=== PATIENT | male | born 1945 | race Hispanic/Latino ===

== ENCOUNTER 2017-01-12 06:53 | Emergency (ER) | payer MEDICARE, OTHER, MEDICAID ==
[2017-01-12 06:53] VITALS: BMI 26.6
[2017-01-12 07:01] VITALS: O2SAT 99
--- NOTE | 2017-01-12 07:21 | C.PDOC ---
History Of Present Illness 71 y/o male pmhx Alzheimers, seizure disorder and frequent falls on aspirin and plavix presents to the ED s/p fall. Pt states last night he was walking to the bathroom when he slipped and his legs gave out falling forward onto knees and hitting face, denies LOC. Pt now with abrasions to his face and knees. Denies chest pain, SOB, hip pain, leg pain, nausea, vomiting or any other complaints. - HPI Time Seen by Provider: 01/12/17 07:07 Chief Complaint (Nursing): Trauma History Per: Patient History/Exam Limitations: no limitations Onset/Duration Of Symptoms: Hrs Location Of Injury: Right: Knee, Left: Knee, Anterior: Face Severity: Mild Recent travel outside of the [place]: No - Fall Fall:Prior To Injury: Slipped Past Medical History Reviewed: Historical Data, Nursing Documentation, Vital Signs Vital Signs: Last Vital Signs Temp 97.5 F L 01/12/17 10:01 Pulse 67 01/12/17 10:01 Resp 17 01/12/17 10:01 BP 163/67 H 01/12/17 10:01 Pulse Ox 99 01/12/17 13:41 - Medical History PMH: Anxiety, Atrial Fibrillation, Dementia, HTN, Osteoporosis, Pneumonia, Seizures Comment Only: CHF (A-Fib) - [facility] Procedures FLUOROSCOPY OF RIGHT HEART USING OTHER CONTRAST (04/24/15) MEASURE OF CARDIAC SAMPL & PRESSURE, R HEART, PERC APPROACH (04/24/15) Family History: States: Unknown Family Hx - Social History Hx Tobacco Use: No Hx Alcohol Use: No Hx Substance Use: No - Immunization History Hx Tetanus Toxoid Vaccination: No Hx Influenza Vaccination: Yes Hx Pneumococcal Vaccination: Yes Review Of Systems Except As Marked, All Systems Reviewed And Found Negative. Constitutional: Negative for: Fever, Chills Cardiovascular: Negative for: Chest Pain, Palpitations, Orthopnea, Edema, Light Headedness Respiratory: Negative for: Cough, Shortness of Breath, SOB with Excertion, Wheezing Gastrointestinal: Negative for: Nausea, Vomiting, Constipation Genitourinary: Negative for: Dysuria Musculoskeletal: Negative for: Neck Pain, Back Pain Skin: Positive for: Other (abrasions to face and bilateral knees) Neurological: Negative for: Weakness, Numbness, Headache Physical Exam - Physical Exam Appears: Well, Non-toxic, No Acute Distress Skin: Warm, Other (3 cm linear abrasion to forehead with pinpoint abrasion to top of nose; abrasions to bilateral knees) Head: Normacephalic, No Swelling Eye(s): bilateral: Normal Inspection, PERRL, EOMI Ear(s): Bilateral: Normal Nose: No Epistaxis Neck: Normal, Normal ROM, No Midline Cervical Tenderness, No Paracervical Tenderness, Supple Chest: Symmetrical, No Tenderness (no bony rib tenderness) Cardiovascular: Rhythm Regular, No Murmur Respiratory: Normal Breath Sounds, No Rales, No Rhonchi, No Wheezing Gastrointestinal/Abdominal: Normal Exam, Soft, No Tenderness, No Mass, No Distention Back: Normal Inspection, No Vertebral Tenderness Extremity: Normal ROM (upper and lower extremities), No Tenderness (no hip tenderness), No Deformity, No Swelling Neurological/Psych: Oriented x3, Normal Speech, Normal Cognition, Normal Motor, Normal Sensation Gait: With Assistance ED Course And Treatment - Laboratory Results Result Diagrams: 01/12/17 11:10 01/12/17 11:10 O2 Sat by Pulse Oximetry: 99 (room air) Pulse Ox Interpretation: Normal - CT Scan/US CT cervical spine Other Rad Studies (CT/US): Read By Radiologist, Radiology Report Reviewed CT/US Interpretation: CT cervical spine. History: Injury. Comparison: None available. Technique: Multiple contiguous axial images were performed through the cervical spine without the use of intravenous contrast. Findings: The patient is rotated in the scanner, somewhat limiting evaluation. Reversal of the normal cervical lordosis. Prominent narrowing at the atlantodental interval with sclerosis and bony hypertrophy. Anterior osteophytosis at the C3- 4, C4-5, C5-6, and C6-7 levels. Multilevel posterior disc osteophyte complexes at the C4-5, C5-6, and C6-7 levels. Vertically-oriented bony hypertrophy and or osteophytosis emanating from the posterior C7 vertebral body extending into the anterior thecal sac. This may be better evaluated with MRI. Please see separate report for evaluation of the facial soft tissues including possible nasal deformities. Multilevel uncovertebral joint and facet hypertrophy. 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 Heterogeneous thyroid gland. Impression: Degenerative changes. If pain persists, consider MRI. The patient is rotated in the scanner, somewhat limiting evaluation. 1. Prominent narrowing at the atlantodental interval with sclerosis and bony hypertrophy. 2. Anterior osteophytosis at the C3-4, C4-5, C5-6, and C6-7 levels. 3. Multilevel posterior disc osteophyte complexes at the C4-5, C5-6, and C6-7 levels. 4. Vertically-oriented bony hypertrophy and or osteophytosis emanating from the posterior C7 vertebral body extending into the anterior thecal sac. This may be better evaluated with MRI. 5. Please see separate report for evaluation of the facial soft tissues including possible nasal deformities. 6. Multilevel uncovertebral joint and facet hypertrophy. 7. 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 CT face Other Rad Studies (CT/US): Read By Radiologist, Radiology Report Reviewed CT/US Interpretation: CT face. History: Trauma. Comparison: None available. Technique: Multi-echo multiplanar sequences were performed through the maxillofacial soft tissues without the use of intravenous contrast. Subsequently, sagittal and coronal reformatted images were obtained. This CT exam was performed using one or more of the following dose reduction techniques : Automated exposure control, adjustment of the mA and/or kV according to patient size, and/or use of iterative reconstruction technique. Findings: Prominent soft tissue swelling seen within the left frontal region extending inferiorly into the periorbital regions and overlying the nasal bones. Subcutaneous air noted within the soft tissues overlying the nasal bones. Suggestion of deformities of the bilateral nasal bones suggestive for nondisplaced fractures. Paranasal sinuses are otherwise preserved. Orbital globes appear preserved. Metallic artifact from likely prior dental or surgical debris at the level of the anterior left mandible. Clinical correlation to prior surgical and or dental changes. Dental caries noted. Degenerative changes in the spine noted. At the level of the left TMJ joint space there is a punctate osteophyte and or ossific density seen at the left TMJ joint space. Clinical correlation. Impression: 1. Prominent soft tissue swelling seen within the left frontal region extending inferiorly into the periorbital regions and overlying the nasal bones. Subcutaneous air noted within the soft tissues overlying the nasal bones. 2. Suggestion of deformities of the bilateral nasal bones suggestive for nondisplaced fractures. 3. Metallic artifact from likely prior dental or surgical debris at the level of the anterior left mandible. Clinical correlation to prior surgical and or dental changes. 4. Dental caries noted. 5. Degenerative changes in the spine noted. 6. At the level of the left TMJ joint space there is a punctate osteophyte and or ossific density seen at the left TMJ joint space. Clinical correlation. CT head Other Rad Studies (CT/US): Read By Radiologist, Radiology Report Reviewed CT/US Interpretation: PROCEDURE: CT HEAD WITHOUT CONTRAST. HISTORY: head injury. COMPARISON: 04/23/2015. TECHNIQUE: Axial computed tomography images were obtained through the head/brain without intravenous contrast. Radiation dose: Total exam DLP = 969 mGy-cm. This CT exam was performed using one or more of the following dose reduction techniques: Automated exposure control, adjustment of the mA and/or kV according to patient size, and/or use of iterative reconstruction technique. FINDINGS: HEMORRHAGE: No intracranial hemorrhage. BRAIN: Moderate cerebral and cerebellar atrophy. Scattered focal lucencies in the subcortical and periventricular white matter suggestive for chronic microvascular ischemic change. Left basal ganglia lacunar infarct. Small focal areas of chronic encephalomalacia seen within the posterior right frontal lobe. VENTRICLES: Unremarkable. No hydrocephalus. CALVARIUM: Unremarkable. PARANASAL SINUSES: Scattered mucosal thickening of the ethmoid sinuses. MASTOID AIR CELLS: Unremarkable as visualized. No inflammatory changes. OTHER FINDINGS: Atherosclerotic disease of the intracranial arteries. Mild left frontal and periorbital soft tissue swelling. IMPRESSION: Chronic microvascular ischemic change. Moderate cerebral and cerebellar atrophy. Left basal ganglia lacunar infarct. If focal neurologic deficit persists, consider MRI. Laceration - Laceration Repair No standard instances Wound Length (In cm): 4 Description Of Wound: Linear (abrasion) Wound Examination: Irrigated With Saline Wound Closure: Skin Glue no Wound Length (In cm): 1 Description Of Wound: Stellate Anesthesia: Lidocaine 1% Wound Examination: Irrigated With Saline Wound Closure: Suture (1) Wound Complexity: Simple Medical Decision Making Medical Decision Making: Plan: -CT head, CT c-spine, CT max/facial -Tetanus -Lac repair 9:58PM CT max face shows non-displaced nasal bone fractures. CT head and CT c-spine shows no acute changes but chronic infarcts and djd. Abrasions repaired with dermabond and 1 suture. Dressing applied. 10:42AM I went to discharge patient and he now reports he had seizure this morning. Will get bloodwork and anti-epilpetic levels 1:36PM Labs reviwed and grossly normal. Coagulation studies WNL. Nursing paperwork reviewed that showed patient fell and has hx of falls. He has been [facility]. Patient has been monitored in ED for 7 hours and has had no change in mental status. His is neurologically at baseline. UA shows uti. Spoke to PMD Dr. Jesus Monahan about patient at length. He reports that patient attempts to ambulate alone and has hx of falls. He agrees with current management and to discharge with antibiotics for uti. Disposition - Disposition Referrals: Maninder Temple MD [Staff Provider] - Disposition: HOME/ ROUTINE Disposition Time: 10:15 Condition: GOOD Additional Instructions: Follow-up with ENT within 2 days for nasal bone fractures. Return to ED if condition worsens. Monitor patient for any change in mental status. 1 suture to nose needs removal in 10 days Prescriptions: Ciprofloxacin [Cipro] 250 mg PO BID #10 tab Instructions: Nasal Fracture (ED), Urinary Tract Infection in Men (ED), Fall Prevention for Older Adults (ED) - Clinical Impression Clinical Impression: UTI (urinary tract infection), Fall, Nasal bone fracture - Scribe Statement The provider has reviewed the documentation as recorded by the Reynaibnisha Herrera Provider Attestation: All medical record entries made by the Reynaibe were at my direction and personally dictated by me. I have reviewed the chart and agree that the record accurately reflects my personal performance of the history, physical exam, medical decision making, and the department course for this patient. I have also personally directed, reviewed, and agree with the discharge instructions and disposition.
--- NOTE | 2017-01-12 08:43 | CT ---
PROCEDURE: CT HEAD WITHOUT CONTRAST. HISTORY: head injury COMPARISON: 04/23/2015 TECHNIQUE: Axial computed tomography images were obtained through the head/brain without intravenous contrast. Radiation dose: Total exam DLP = 969 mGy-cm. This CT exam was performed using one or more of the following dose reduction techniques: Automated exposure control, adjustment of the mA and/or kV according to patient size, and/or use of iterative reconstruction technique. FINDINGS: HEMORRHAGE: No intracranial hemorrhage. BRAIN: Moderate cerebral and cerebellar atrophy. Scattered focal lucencies in the subcortical and periventricular white matter suggestive for chronic microvascular ischemic change. Left basal ganglia lacunar infarct. Small focal areas of chronic encephalomalacia seen within the posterior right frontal lobe. VENTRICLES: Unremarkable. No hydrocephalus. CALVARIUM: Unremarkable. PARANASAL SINUSES: Scattered mucosal thickening of the ethmoid sinuses. MASTOID AIR CELLS: Unremarkable as visualized. No inflammatory changes. OTHER FINDINGS: Atherosclerotic disease of the intracranial arteries. Mild left frontal and periorbital soft tissue swelling. IMPRESSION: Chronic microvascular ischemic change. Moderate cerebral and cerebellar atrophy. Left basal ganglia lacunar infarct. If focal neurologic deficit persists, consider MRI.
--- NOTE | 2017-01-12 08:53 | CT ---
CT face History: Trauma. Comparison: None available. Technique: Multi-echo multiplanar sequences were performed through the maxillofacial soft tissues without the use of intravenous contrast. Subsequently, sagittal and coronal reformatted images were obtained. This CT exam was performed using one or more of the following dose reduction techniques: Automated exposure control, adjustment of the mA and/or kV according to patient size, and/or use of iterative reconstruction technique. Findings: Prominent soft tissue swelling seen within the left frontal region extending inferiorly into the periorbital regions and overlying the nasal bones. Subcutaneous air noted within the soft tissues overlying the nasal bones. Suggestion of deformities of the bilateral nasal bones suggestive for nondisplaced fractures. Paranasal sinuses are otherwise preserved. Orbital globes appear preserved. Metallic artifact from likely prior dental or surgical debris at the level of the anterior left mandible. Clinical correlation to prior surgical and or dental changes. Dental caries noted. Degenerative changes in the spine noted. At the level of the left TMJ joint space there is a punctate osteophyte and or ossific density seen at the left TMJ joint space. Clinical correlation. Impression: 1. Prominent soft tissue swelling seen within the left frontal region extending inferiorly into the periorbital regions and overlying the nasal bones. Subcutaneous air noted within the soft tissues overlying the nasal bones. 2. Suggestion of deformities of the bilateral nasal bones suggestive for nondisplaced fractures. 3. Metallic artifact from likely prior dental or surgical debris at the level of the anterior left mandible. Clinical correlation to prior surgical and or dental changes. 4. Dental caries noted. 5. Degenerative changes in the spine noted. 6. At the level of the left TMJ joint space there is a punctate osteophyte and or ossific density seen at the left TMJ joint space. Clinical correlation.
--- NOTE | 2017-01-12 09:08 | CT ---
CT cervical spine History: Injury. Comparison: None available. Technique: Multiple contiguous axial images were performed through the cervical spine without the use of intravenous contrast. Findings: The patient is rotated in the scanner, somewhat limiting evaluation. Reversal of the normal cervical lordosis. Prominent narrowing at the atlantodental interval with sclerosis and bony hypertrophy. Anterior osteophytosis at the C3-4, C4-5, C5-6, and C6-7 levels. Multilevel posterior disc osteophyte complexes at the C4-5, C5-6, and C6-7 levels. Vertically-oriented bony hypertrophy and or osteophytosis emanating from the posterior C7 vertebral body extending into the anterior thecal sac. This may be better evaluated with MRI. Please see separate report for evaluation of the facial soft tissues including possible nasal deformities. Multilevel uncovertebral joint and facet hypertrophy. 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 Heterogeneous thyroid gland. Impression: Degenerative changes. If pain persists, consider MRI. The patient is rotated in the scanner, somewhat limiting evaluation. 1. Prominent narrowing at the atlantodental interval with sclerosis and bony hypertrophy. 2. Anterior osteophytosis at the C3-4, C4-5, C5-6, and C6-7 levels. 3. Multilevel posterior disc osteophyte complexes at the C4-5, C5-6, and C6-7 levels. 4. Vertically-oriented bony hypertrophy and or osteophytosis emanating from the posterior C7 vertebral body extending into the anterior thecal sac. This may be better evaluated with MRI. 5. Please see separate report for evaluation of the facial soft tissues including possible nasal deformities. 6. Multilevel uncovertebral joint and facet hypertrophy. 7. 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
[2017-01-12] MEDS ORDERED: Lidocaine 1% Inj (20ml) INFIL ONE (09:59)
[2017-01-12] MEDS ORDERED: Lidocaine 1% Inj (20ml) ONE (10:04)
[2017-01-12 11:27] LABS: BASO # 0.2 K/uL (0.0-0.2); EOS # 0.3 K/uL (0.0-0.7); EOS % 3.7 % (0.0-4.0); HEMOGLOBIN 14.3 g/dL (12.0-18.0); LYMPH # 0.9 K/uL (1.0-4.3); LYMPH % 10.8 % (20.0-40.0); MEAN CORPUSCULAR HEMOGLOBIN 32.6 pg (27.0-31.0); MEAN CORPUSCULAR HGB CONC 33.6 g/dL (33.0-37.0); MEAN PLATELET VOLUME 7.5 fL (7.2-11.7); MONO # 0.8 K/uL (0.0-0.8); MONO % 9.3 % (0.0-10.0); NEUT # 6.1 K/uL (1.8-7.0); NEUT % 74.2 % (50.0-75.0); NRBC % 0.1 % (0.0-2.0); RBC 4.38 Mil/uL (4.40-5.90); RED CELL DISTRIBUTION WIDTH 13.4 % (11.5-14.5); WHITE BLOOD COUNT 8.3 K/uL (4.8-10.8)
--- NOTE | 2017-01-12 11:29 | RAD ---
HISTORY: fall COMPARISON: Chest x-ray performed 04/23/15 TECHNIQUE: Chest, one view. FINDINGS: Examination limited by habitus. LUNGS: Biapical pleural thickening. No focal consolidation. Please note that chest x-ray has limited sensitivity for the detection of pulmonary masses. PLEURA: No significant pleural effusion identified. No definite pneumothorax . CARDIOVASCULAR: Borderline cardiomegaly. Atherosclerotic calcifications of the aorta. OSSEOUS STRUCTURES: No acute osseous abnormality identified. VISUALIZED UPPER ABDOMEN: Unremarkable. OTHER FINDINGS: None. IMPRESSION: Biapical pleural thickening. Borderline cardiomegaly. Atherosclerotic calcifications of the aorta.
[2017-01-12 11:37] LABS: ALBUMIN 3.4 g/dL (3.5-5.0)
[2017-01-12 11:39] LABS: GFR AFRICAN-AMERICAN > 60; GFR NON-AFRICAN AMERICAN > 60
[2017-01-12 11:40] LABS: ALB/GLOB RATIO 1.2 (1.0-2.1); ALT/SGPT 25 U/L (21-72); AST/SGOT 34 U/L (17-59); BLOOD UREA NITROGEN 11 mg/dL (9-20); CALCIUM 8.3 mg/dl (8.6-10.4); MAGNESIUM 2.2 mg/dL (1.6-2.3)
[2017-01-12] MEDS ORDERED: Bacitracin 500 Units/gm Oint Foilpak UD ONE (12:21)
[2017-01-12 12:32] LABS: SQUAMOUS EPITHIAL 1 /hpf (0-5); URINE BACTERIA OCC (<OCC); URINE BILIRUBIN NEGATIVE (NEGATIVE); URINE BLOOD NEGATIVE (NEGATIVE); URINE CLARITY Hazy (Clear); URINE COLOR Yellow (YELLOW); URINE GLUCOSE (UA) NORMAL (Normal); URINE LEUKOCYTE ESTERASE 2+ Leu/uL (Negative); URINE NITRATE NEGATIVE (NEGATIVE); URINE PROTEIN NEGATIVE (NEGATIVE); URINE UROBILINOGEN NORMAL mg/dL (0.2-1.0)
[2017-01-12 13:32] LABS: INR 1.1
[2017-01-12 14:58] VITALS: BP 166/79; PULSE 65; RESP 16; TEMP 97.9
[2017-01-14 12:18] LABS: LAMOTRIGINE 11.2 mcg/mL (4.0-18.0)
[2017-01-15 13:59] LABS: LEVETIRACETAM 16.4 mcg/mL
== END 2017-01-12 15:30 | disposition home or self-care (01) ==
LOC: C.ER 06:53
DX: S02.2XXB Fracture of nasal bones, initial encounter for open fracture (principal); W01.0XXA Fall on same level from slipping, tripping and stumbling without subsequent striking against object, initial encounter; Y92.128 Other place in nursing home as the place of occurrence of the external cause; N39.0 Urinary tract infection, site not specified

== ENCOUNTER 2017-05-11 18:01 | Emergency (ER) | payer MEDICARE, OTHER, MEDICAID ==
[2017-05-11 18:02] VITALS: BMI 26.6
--- NOTE | 2017-05-11 19:22 | C.PDOC ---
History Of Present Illness Patient presents to ED for evaluation status post falling and hitting head prior to arrival. Patient sustained 1.5cm superficial laceration to head and denies loc, seizure, vision changes, nausea, vomiting, other injury or any other complaints at this time. Time Seen by Provider: 05/11/17 19:22 Chief Complaint (Nursing): Abnormal Skin Integrity History Per: Patient History/Exam Limitations: no limitations Onset/Duration Of Symptoms: Hrs Current Symptoms Are (Timing): Still Present Quality Of Symptoms: Painful Severity: Mild Pain Scale Rating Of: 2 Recent travel outside of the [place]: No Past Medical History Reviewed: Historical Data, Nursing Documentation, Vital Signs Vital Signs: Last Vital Signs Temp 98.2 F 05/11/17 18:13 Pulse 78 05/11/17 18:13 Resp 18 05/11/17 18:13 BP 160/80 H 05/11/17 18:13 Pulse Ox 98 05/11/17 19:42 - Medical History PMH: Alzheimer's Disease, Anxiety, Arthritis, Atrial Fibrillation, Dementia, HTN , Osteoporosis, Pneumonia, Seizures Comment Only: CHF (A-Fib) Surgical History: No Surg Hx - [facility] Procedures FLUOROSCOPY OF RIGHT HEART USING OTHER CONTRAST (04/24/15) MEASURE OF CARDIAC SAMPL & PRESSURE, R HEART, PERC APPROACH (04/24/15) REPAIR FACE SKIN, EXTERNAL APPROACH (04/25/17) Family History: States: No Known Family Hx - Social History Hx Tobacco Use: No Hx Alcohol Use: No Hx Substance Use: No - Immunization History Hx Tetanus Toxoid Vaccination: No Hx Influenza Vaccination: Yes Hx Pneumococcal Vaccination: Yes Review Of Systems Eyes: Negative for: Vision Change Gastrointestinal: Negative for: Nausea, Vomiting Skin: Negative for: Rash Neurological: Negative for: Seizures, Dizziness Physical Exam - Physical Exam Appears: Non-toxic, No Acute Distress Skin: Warm, Dry, No Rash Head: Normacephalic, Other (1.5cm superficial escoriation possible laceration on temporal parietal area) Eye(s): bilateral: PERRL, EOMI Oral Mucosa: Moist Neck: Supple Cardiovascular: Rhythm Regular Respiratory: No Rales, No Rhonchi, No Wheezing Gastrointestinal/Abdominal: Soft, No Tenderness, No Guarding, No Rebound Neurological/Psych: Oriented x3, Normal Speech, Normal Cognition, Normal Motor, Normal Sensation Gait: Steady ED Course And Treatment O2 Sat by Pulse Oximetry: 98 (RA) Pulse Ox Interpretation: Normal Reevaluation Time: 22:09 Reassessment Condition: Improved Disposition Counseled Patient/Family Regarding: Studies Performed, Diagnosis, Need For Followup - Disposition Referrals: Jesus Monahan MD [Staff Provider] - Disposition: HOME/ ROUTINE Disposition Time: 19:22 Condition: FAIR Instructions: Head Injury (ED), Abrasion (ED) Forms: [employer] (Colombian) - Clinical Impression Clinical Impression: Fall, Minor head injury without loss of consciousness, Scalp abrasion - Scribe Statement The provider has reviewed the documentation as recorded by the Scribe Xu Bateman All medical record entries made by the Reynaibe were at my direction and personally dictated by me. I have reviewed the chart and agree that the record accurately reflects my personal performance of the history, physical exam, medical decision making, and the department course for this patient. I have also personally directed, reviewed, and agree with the discharge instructions and disposition.
--- NOTE | 2017-05-11 21:59 | CT ---
EXAM: CT Head Without Intravenous Contrast CLINICAL HISTORY: 72 years old, male; Injury or trauma; Fall; Initial encounter; Concussion / head injury TECHNIQUE: Axial computed tomography images of the head/brain without intravenous contrast. All CT scans at this facility use one or more dose reduction techniques, viz.: automated exposure control; ma/kV adjustment per patient size (including targeted exams where dose is matched to indication; i.e. head); or iterative reconstruction technique. Coronal and sagittal reformatted images were created and reviewed. COMPARISON: CT - HEAD W/O CONTRAST 2015-04-23 21:43 FINDINGS: Brain: No acute intracranial hemorrhage. Findings consistent with prior right MCA cerebral infarction. Otherwise age-appropriate periventricular white matter disease. No edema. Ventricles: Age-appropriate ventriculomegaly. Bones: No acute displaced fracture. Sinuses: Unremarkable as visualized. No acute sinusitis. Mastoid air cells: Unremarkable as visualized. No mastoid effusion. IMPRESSION: Stable CT examination of the head, without acute intracranial hemorrhage, or suspicious mass effect.
[2017-05-12 01:00] VITALS: BP 156/91; PULSE 84; RESP 18; TEMP 98.7; O2SAT 97
== END 2017-05-12 00:58 | disposition home or self-care (01) ==
LOC: C.ER 18:01
DX: S00.01XA Abrasion of scalp, initial encounter (principal); W18.30XA Fall on same level, unspecified, initial encounter; Y93.89 Activity, other specified; Y92.122 Bedroom in nursing home as the place of occurrence of the external cause

== ENCOUNTER 2017-06-06 22:16 | Emergency (ER) | payer MEDICARE, OTHER, MEDICAID ==
[2017-06-06 22:16] VITALS: BMI 26.6
--- NOTE | 2017-06-06 22:34 | C.PDOC ---
Time Seen by Provider: 06/06/17 22:33 Chief Complaint (Nursing): Upper Extremity Problem/Injury Past Medical History Vital Signs: Last Vital Signs Temp 97 F L 06/06/17 22:27 Pulse 76 06/06/17 22:27 Resp 14 06/06/17 22:27 BP 131/44 L 06/06/17 22:27 Pulse Ox 96 06/06/17 22:27 - Medical History PMH: Alzheimer's Disease, Anxiety, Arthritis, Atrial Fibrillation, Dementia, HTN , Osteoporosis, Pneumonia, Seizures Denies: Chronic Kidney Disease Comment Only: CHF (A-Fib) - [facility] Procedures FLUOROSCOPY OF RIGHT HEART USING OTHER CONTRAST (04/24/15) MEASURE OF CARDIAC SAMPL & PRESSURE, R HEART, PERC APPROACH (04/24/15) REPAIR FACE SKIN, EXTERNAL APPROACH (04/25/17) Family History: States: Unknown Family Hx - Social History Hx Tobacco Use: No Hx Alcohol Use: No Hx Substance Use: No - Immunization History Hx Tetanus Toxoid Vaccination: No Hx Influenza Vaccination: Yes Hx Pneumococcal Vaccination: Yes ED Course And Treatment O2 Sat by Pulse Oximetry: 96 Disposition Counseled Patient/Family Regarding: Studies Performed, Diagnosis - Disposition Disposition Time: 22:34
[2017-06-06] MEDS ORDERED: Lidocaine/Epi 1% 1:100000 20 ML IJ ONE (22:41)
[2017-06-06] MEDS ORDERED: Lidocaine 1% w Epi 1:100,000 Inj ONE (22:55)
[2017-06-06] MEDS ORDERED: Bacitracin 500 Units/gm Oint Foilpak UD TOP ONE (23:27)
[2017-06-06] MEDS ORDERED: Bacitracin 500 Units/gm Oint Foilpak UD ONE (23:27)
--- NOTE | 2017-06-06 23:31 | C.PDOC ---
History Of Present Illness Pt fell at the skilled nursing injuring his left forearm. No LOC. No head injury. 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) Current Symptoms Are (Timing): Still Present Severity: Moderate Elbow (Pic): 1 - Wound Additional History Per: Longterm, Prior Records Past Medical History Reviewed: Historical Data, Nursing Documentation, Vital Signs Vital Signs: Last Vital Signs Temp 97 F L 06/06/17 22:27 Pulse 76 06/06/17 22:27 Resp 14 06/06/17 22:27 BP 131/44 L 06/06/17 22:27 Pulse Ox 96 06/06/17 22:27 - Medical History PMH: Alzheimer's Disease, Anxiety, Arthritis, Atrial Fibrillation, Dementia, HTN , Osteoporosis, Pneumonia, Seizures Comment Only: CHF (A-Fib) - [facility] Procedures FLUOROSCOPY OF RIGHT HEART USING OTHER CONTRAST (04/24/15) MEASURE OF CARDIAC SAMPL & PRESSURE, R HEART, PERC APPROACH (04/24/15) REPAIR FACE SKIN, EXTERNAL APPROACH (04/25/17) Family History: States: Unknown Family Hx - Social History Hx Tobacco Use: No Hx Alcohol Use: No Hx Substance Use: No - Immunization History Hx Tetanus Toxoid Vaccination: Yes (2014) Hx Influenza Vaccination: Yes Hx Pneumococcal Vaccination: Yes Review Of Systems Except As Marked, All Systems Reviewed And Found Negative. Constitutional: Negative for: Fever Cardiovascular: Negative for: Chest Pain Respiratory: Negative for: Shortness of Breath Gastrointestinal: Negative for: Vomiting, Abdominal Pain Musculoskeletal: Negative for: Neck Pain, Back Pain Neurological: Negative for: Weakness, Numbness, Headache Physical Exam - Physical Exam Appears: Non-toxic, No Acute Distress Skin: Normal Color, Warm, Dry Head: Atraumatic, Normacephalic Eye(s): bilateral: PERRL, EOMI Neck: Normal ROM, No Midline Cervical Tenderness, No Step Off Deformity, Supple Chest: Symmetrical, No Deformity Cardiovascular: Rhythm Regular Respiratory: Normal Breath Sounds, No Accessory Muscle Use Gastrointestinal/Abdominal: Soft, No Tenderness Extremity: Normal ROM, No Tenderness, Other (Stellate wound on left forearm with contused tissue) Pulses: Left Radial: Normal Neurological/Psych: Oriented x3, Normal Motor, Normal Sensation ED Course And Treatment O2 Sat by Pulse Oximetry: 96 Pulse Ox Interpretation: Normal Laceration - Laceration Repair Left forearm Wound Length (In cm): 5 Description Of Wound: Irregular, Stellate, Contused Tissue Anesthesia: Lidocaine 1%, With Epi Wound Examination: Irrigated With Saline, No Tendon Injury With Wound Exploration Wound Debridement/Revision: Wound Debrided Wound Closure: Maverick Wound Complexity: Intermediate Disposition Counseled Patient/Family Regarding: Studies Performed, Diagnosis, Need For Followup, Rx Given - Disposition Referrals: Jesus Monahan MD [Staff Provider] - Disposition: TRANSF TO SNF Disposition Time: 23:33 Condition: IMPROVED Additional Instructions: Staple removal in 2 weeks. Keep wound clean and dressed. Return to the ER if you develop fever, redness, swelling, pus drainage, worsening of symptoms or if you have any other concerns. Prescriptions: Cephalexin [cephalexin] 500 mg PO TID #21 cap Instructions: Acute Wound Care (ED), Staple Care (ED) - Clinical Impression Clinical Impression: Open wound of left forearm
[2017-06-07 02:14] VITALS: BP 138/69; PULSE 70; RESP 18; TEMP 97.9; O2SAT 100
== END 2017-06-07 03:25 ==
LOC: C.ER 22:16
DX: S51.812A Laceration without foreign body of left forearm, initial encounter (principal); W01.0XXA Fall on same level from slipping, tripping and stumbling without subsequent striking against object, initial encounter; Y92.128 Other place in nursing home as the place of occurrence of the external cause

== ENCOUNTER 2017-06-22 07:54 | Emergency (ER) | payer MEDICARE, OTHER, MEDICAID ==
[2017-06-22 07:54] VITALS: BMI 26.6
[2017-06-22 08:00] VITALS: TEMP 97.7
[2017-06-22] MEDS ORDERED: Lidocaine 2% Inj (20ml) ONE (08:31)
--- NOTE | 2017-06-22 09:22 | CT ---
PROCEDURE: CT HEAD WITHOUT CONTRAST. HISTORY: Injury COMPARISON: 05/11/2017. TECHNIQUE: Axial computed tomography images were obtained through the head/brain without intravenous contrast. Radiation dose: Total exam DLP = 1847.68 mGy-cm. This CT exam was performed using one or more of the following dose reduction techniques: Automated exposure control, adjustment of the mA and/or kV according to patient size, and/or use of iterative reconstruction technique. FINDINGS: HEMORRHAGE: No intracranial hemorrhage. BRAIN: Again seen is cystic encephalomalacia in the right parietal lobe. There are severe chronic microangiopathic changes. There is an old lacunar infarction in the right medial thalamus. There is no mass, mass effect or abnormal extra-axial fluid collection. VENTRICLES: There is moderate age-related global parenchymal volume loss and proportionate enlargement of the ventricles and cortical sulci. CALVARIUM: There is no calvarial fracture. There is a moderate left parietal scalp hematoma. PARANASAL SINUSES: Predominantly clear. MASTOID AIR CELLS: Predominantly clear. OTHER FINDINGS: None. IMPRESSION: No acute intracranial abnormality. Moderate left parietal scalp hematoma. 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 Severe chronic microangiopathic changes and moderate age-related global parenchymal volume loss.
[2017-06-22 09:33] VITALS: O2SAT 98
[2017-06-22 09:53] LABS: INR 1.3; PROTHROMBIN TIME 14.8 SECONDS (9.7-12.2)
--- NOTE | 2017-06-22 09:54 | C.PDOC ---
History Of Present Illness 72-year-old male w/PMHx of HTN, Afib, dementia with behaviour disturbance, presents to the emergency department from [facility] with complaints of head injury and scalp laceration, sustained at 05:00 this morning. As per transfer note, he was sitting on wheelchair when he fell and hit his head. Patient appears somnolent. He is arousable to verbal stimuli. Unable to provide HPI. - HPI Time Seen by Provider: 06/22/17 08:07 Chief Complaint (Nursing): Trauma History Per: Patient History/Exam Limitations: no limitations Past Medical History Reviewed: Historical Data, Nursing Documentation, Vital Signs Vital Signs: Last Vital Signs Temp 97.7 F 06/22/17 07:55 Pulse 83 06/22/17 12:57 Resp 16 06/22/17 12:57 BP 136/52 L 06/22/17 12:57 Pulse Ox 98 06/22/17 12:21 - Medical History PMH: Alzheimer's Disease, Anxiety, Arthritis, Atrial Fibrillation, Dementia, HTN , Osteoporosis, Pneumonia, Seizures Comment Only: CHF (A-Fib) - [facility] Procedures FLUOROSCOPY OF RIGHT HEART USING OTHER CONTRAST (04/24/15) MEASURE OF CARDIAC SAMPL & PRESSURE, R HEART, PERC APPROACH (04/24/15) REPAIR FACE SKIN, EXTERNAL APPROACH (04/25/17) Family History: States: No Known Family Hx - Social History Hx Tobacco Use: No Hx Alcohol Use: No Hx Substance Use: No - Immunization History Hx Tetanus Toxoid Vaccination: Yes (2014) Hx Influenza Vaccination: Yes Hx Pneumococcal Vaccination: Yes Review Of Systems Review Of Systems: ROS cannot be obtained secondary to pt's inabilty to answer questions. Physical Exam - Physical Exam Appears: Non-toxic, No Acute Distress, Other (somnolent) Skin: Warm, Dry, Ecchymosis, Other (Old trace echymosis noted to left anterior chest wall, left flank. Well healing abrasion to B/L Keess, lower legs. NO cellulitis.) Head: Normacephalic, Other (5cm cutaneous laceration to occipital scalp, mild bloody oozing noted. NO wound FB, no palpable deformity.) Eye(s): bilateral: PERRL Ear(s): Bilateral: Normal Nose: No Flaring, No Discharge, No Deformity, No Tenderness Oral Mucosa: Moist, No Drooling Tongue: Normal Appearing, No Laceration Lips: Normal Appearing Throat: No Erythema, No Drooling Neck: Normal ROM, Trachea Midline, Supple Cardiovascular: Rhythm Regular Respiratory: No Decreased Breath Sounds, No Accessory Muscle Use, No Rales, No Rhonchi Gastrointestinal/Abdominal: Soft, Tenderness (Mildly distended), No Guarding, No Rebound Back: No Vertebral Tenderness Male Genital: Other (dipaer, urine incontinent) Extremity: Normal ROM, No Pedal Edema, No Deformity, No Swelling Neurological/Psych: Oriented x3, Normal Motor, Normal Sensation, Normal Reflexes ED Course And Treatment - Laboratory Results Result Diagrams: 06/22/17 09:40 06/22/17 09:40 Lab Interpretation: No Acute Changes O2 Sat by Pulse Oximetry: 98 Pulse Ox Interpretation: Normal - CT Scan/US CT HEAD Other Rad Studies (CT/US): Read By Radiologist, Radiology Report Reviewed CT/US Interpretation: Accession No. : [id number]. Patient Name / ID : CAROLYN QUEZADA / [id number]. Exam Date : 06/22/2017 08:49:14 ( Approved ). Study Comment : Sex / Age : M / 72Y. Creator : Penelope Taveras MD. Dictator : Penelope Taveras MD. Tax Adjuster : Quality Assurance Monitor : Penelope Taveras MD. Approver2 : Report Date : 06/22/2017 09:21:23. My Comment : . PROCEDURE: CT HEAD WITHOUT CONTRAST. HISTORY: Injury. COMPARISON: 2016. TECHNIQUE: Axial computed tomography images were obtained through the head/brain without intravenous contrast. Radiation dose: Total exam DLP = 1847.68 mGy-cm. This CT exam was performed using one or more of the following dose reduction techniques: Automated exposure control, adjustment of the mA and/ or kV according to patient size, and/or use of iterative reconstruction technique. FINDINGS: HEMORRHAGE: No intracranial hemorrhage. BRAIN: Again seen is cystic encephalomalacia in the right parietal lobe. There are severe chronic microangiopathic changes. There is an old lacunar infarction in the right medial thalamus. There is no mass, mass effect or abnormal extra-axial fluid collection. VENTRICLES: There is moderate age-related global parenchymal volume loss and proportionate enlargement of the ventricles and cortical sulci. CALVARIUM: There is no calvarial fracture. There is a moderate left parietal scalp hematoma. PARANASAL SINUSES: Predominantly clear. MASTOID AIR CELLS: Predominantly clear. OTHER FINDINGS: None. IMPRESSION: No acute intracranial abnormality. Moderate left parietal scalp hematoma. 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 Severe chronic microangiopathic changes and moderate age-related global parenchymal volume loss. Progress Note: Pt was OBS in ED for 3.5 hrs. On re-eval, pt resting comfortably in bed, not in any apparent distress. Head: occipital laceration repaire w/maverick. Neck: SUpple, (-) midline tenderness. Lungs: CTA B/L, BS equal B/L. CVS: (+)S1S2, reg. AB: benign. FAROM of /L UEs and lEs. SKin: multiple old body contusions noted. No cellulitis. Blood work review and appears without acute abnormalities. CT head: no new acute finidngs. UTox (+) phenobard. UA (+) UTI. Ucx- pending. Rocephin started empirically. Pt is stable for transfer back to [place] faciality with further outpt F/U Laceration - Laceration Repair No standard instances Wound Length (In cm): 5cm Description Of Wound: Linear Wound Cleansed With: Betadine Anesthesia: Lidocaine 2% Wound Examination: Irrigated With Saline, No FB With Wound Exploration Wound Closure: Maverick (13) Disposition Counseled Patient/Family Regarding: Diagnosis, Need For Followup, Rx Given - Disposition Referrals: Jesus Monahan MD [Staff Provider] - Disposition: TRANSF TO [facility] Disposition Time: 11:21 Condition: STABLE Additional Instructions: OBSERVE 48 HOURS FOR ANY SIGN OF HEAD INJURY-INTRACTABLE HEADACHE, VOMITING, ANY CHANGES FROM BASELINE MENTAL STATUS-RETURN TO ED FOR RE-EVALUATION. KEEP WOUND CLEAN, DRY MAVERICK REMOVAL IN 10 DAYS ENCOURAGE FLUIDS GIVE MEDICATION ANTIBIOTIC PRESCRIBED FOLLOW UP WITH PMD IN 1-2 DAYS FOR RE-EVALUATION. RETURN TO ED IF ANY WORSENING OR NEW CHANGES. Prescriptions: Cefdinir [Omnicef] 300 mg PO BID #14 cap Instructions: Laceration (ED), Urinary Tract Infection in Women (ED), Head Injury (ED), Staple Care (ED) Forms: [employer] (French) - Clinical Impression Clinical Impression: UTI (urinary tract infection), Laceration - injury, Head injury - Scribe Statement The provider has reviewed the documentation as recorded by the Scribe (Daniela Stone) All medical record entries made by the Scribe were at my direction and personally dictated by me. I have reviewed the chart and agree that the record accurately reflects my personal performance of the history, physical exam, medical decision making, and the department course for this patient. I have also personally directed, reviewed, and agree with the discharge instructions and disposition.
[2017-06-22 09:57] LABS: ALBUMIN 3.4 g/dL (3.5-5.0); ALT/SGPT 47 U/L (21-72); AST/SGOT 36 U/L (17-59); BLOOD UREA NITROGEN 21 mg/dL (9-20); CALCIUM 7.9 mg/dl (8.6-10.4); GFR AFRICAN-AMERICAN > 60; GFR NON-AFRICAN AMERICAN > 60
[2017-06-22 10:02] LABS: ALB/GLOB RATIO 1.1 (1.0-2.1)
[2017-06-22 10:05] LABS: SQUAMOUS EPITHIAL 1 /hpf (0-5); URINE BACTERIA RARE (<OCC); URINE BILIRUBIN NEGATIVE (NEGATIVE); URINE CLARITY Hazy (Clear); URINE COLOR Yellow (YELLOW); URINE GLUCOSE (UA) NORMAL (Normal); URINE LEUKOCYTE ESTERASE 3+ Leu/uL (Negative); URINE NITRATE NEGATIVE (NEGATIVE); URINE PROTEIN 2+ mg/dL (NEGATIVE); URINE UROBILINOGEN NORMAL mg/dL (0.2-1.0); WBC CLUMPS FEW /hpf
[2017-06-22 10:05] LABS: BASO # 0.1 K/uL (0.0-0.2); BASO % 0.9 % (0.0-2.0); EOS # 0.3 K/uL (0.0-0.7); EOS % 3.8 % (0.0-4.0); HEMOGLOBIN 13.3 g/dL (12.0-18.0); LYMPH # 0.8 K/uL (1.0-4.3); LYMPH % 9.9 % (20.0-40.0); MEAN CELL VOLUME 96.5 fL (80.0-94.0); MEAN CORPUSCULAR HEMOGLOBIN 33.3 pg (27.0-31.0); MEAN CORPUSCULAR HGB CONC 34.5 g/dL (33.0-37.0); MEAN PLATELET VOLUME 7.6 fL (7.2-11.7); MONO # 0.8 K/uL (0.0-0.8); MONO % 10.3 % (0.0-10.0); NEUT # 5.9 K/uL (1.8-7.0); NEUT % 75.1 % (50.0-75.0); NRBC % 0.1 % (0.0-2.0); PLATELET COUNT 219 K/uL (130-400); RED CELL DISTRIBUTION WIDTH 13.9 % (11.5-14.5); WHITE BLOOD COUNT 7.9 K/uL (4.8-10.8)
[2017-06-22 10:06] LABS: BENZODIAZEPINES, UR NEGATIVE (NEGATIVE); OPIATES, UR NEGATIVE (NEGATIVE); PHENCYCLIDINE, UR NEGATIVE (NEGATIVE); URINE BLOOD 1+ (NEGATIVE)
[2017-06-22 10:07] LABS: BARBITURATES, UR POSITIVE (NEGATIVE)
[2017-06-22 10:27] LABS: BANDS 1 % (0-2); EOSINOPHIL 2 % (0-4); LYMPHOCYTE 10 % (20-40); MONOCYTE 11 % (0-10); NEUTROPHIL 76 % (50-75); PLATELET ESTIMATE NORMAL (NORMAL); TOTAL CELLS COUNTED 100
[2017-06-22 10:58] VITALS: RESP 16
[2017-06-22 12:58] VITALS: BP 136/52; PULSE 83
== END 2017-06-22 13:41 ==
LOC: C.ER 07:54
DX: S01.01XA Laceration without foreign body of scalp, initial encounter (principal); W05.0XXA Fall from non-moving wheelchair, initial encounter; Y92.129 Unspecified place in nursing home as the place of occurrence of the external cause; N39.0 Urinary tract infection, site not specified; I10 Essential (primary) hypertension; I48.91 Unspecified atrial fibrillation; G30.9 Alzheimer's disease, unspecified; F02.80 Dementia in other diseases classified elsewhere, unspecified severity, without behavioral disturbance, psychotic disturbance, mood disturbance, and anxiety
CPT/HCPCS: 12002; 70450; 80053; 80184; 81001; 85025; 85610; 85730; 87086; 87181; 96365; 99285; G0480; J0696

== ENCOUNTER 2017-07-03 16:39 | Emergency (ER) | payer MEDICARE, OTHER, MEDICAID ==
[2017-07-03 16:40] VITALS: BMI 26.6
[2017-07-03 18:09] LABS: BASO % 0.4 % (0.0-2.0); EOS # 0.2 K/uL (0.0-0.7); EOS % 2.8 % (0.0-4.0); LYMPH # 0.7 K/uL (1.0-4.3); LYMPH % 11.2 % (20.0-40.0); MEAN CELL VOLUME 96.3 fL (80.0-94.0); MEAN CORPUSCULAR HEMOGLOBIN 32.4 pg (27.0-31.0); MEAN CORPUSCULAR HGB CONC 33.6 g/dL (33.0-37.0); MEAN PLATELET VOLUME 7.3 fL (7.2-11.7); MONO # 0.6 K/uL (0.0-0.8); MONO % 9.5 % (0.0-10.0); NEUT # 4.6 K/uL (1.8-7.0); NEUT % 76.1 % (50.0-75.0); NRBC % 0.1 % (0.0-2.0); RBC 4.03 Mil/uL (4.40-5.90); RED CELL DISTRIBUTION WIDTH 14.2 % (11.5-14.5); WHITE BLOOD COUNT 6.1 K/uL (4.8-10.8)
[2017-07-03 18:14] LABS: VENOUS BLOOD GAS BASE EXCESS 4.3 mmol/L (0.0-2.0); VENOUS BLOOD GAS PCO2 57 mmHg (40-60); VENOUS BLOOD GAS PO2 20 mm/Hg (30-55); VENOUS BLOOD PH 7.35 (7.32-7.43)
[2017-07-03 18:46] LABS: BLOOD UREA NITROGEN 16 mg/dL (9-20); GFR AFRICAN-AMERICAN > 60; GFR NON-AFRICAN AMERICAN > 60
[2017-07-03 18:47] LABS: ALB/GLOB RATIO 1.1 (1.0-2.1); ALBUMIN 3.7 g/dL (3.5-5.0); ALT/SGPT 37 U/L (21-72); AST/SGOT 36 U/L (17-59); CALCIUM 8.3 mg/dl (8.6-10.4); CK-MB 1.43 ng/mL (0.0-3.38)
--- NOTE | 2017-07-03 18:51 | RAD ---
PROCEDURE: CHEST RADIOGRAPH, 1 VIEW HISTORY: BASELINE COMPARISON: 04/25/2017 FINDINGS: LUNGS: Clear. PLEURA: No pneumothorax or pleural fluid seen. CARDIOVASCULAR: Cardiomegaly. No evidence of acute, significant cardiovascular disease. OSSEOUS STRUCTURES: No significant abnormalities. VISUALIZED UPPER ABDOMEN: Normal. OTHER FINDINGS: None. IMPRESSION: No active disease. No acute/significant interval changes.
--- NOTE | 2017-07-03 19:52 | CT ---
EXAM: CT Head Without Intravenous Contrast CLINICAL HISTORY: 72 years old, male; Signs and symptoms; Altered mental status/memory loss and malaise or fatigue; Confusion or disorientation; Additional info: AMS TECHNIQUE: Axial computed tomography images of the head/brain without intravenous contrast. All CT scans at this facility use one or more dose reduction techniques, viz.: automated exposure control; ma/kV adjustment per patient size (including targeted exams where dose is matched to indication; i.e. head); or iterative reconstruction technique. Coronal and sagittal reformatted images were created and reviewed. COMPARISON: CT - HEAD W/O CONTRAST 2017-06-22 08:49 FINDINGS: Brain: Advanced atrophy. Bilateral white matter changes. This is nonspecific and may include microangiopathic disease, small lacunae of indeterminate chronicity, chronic infarcts and/or encephalomalacia. Encephalomalacia right parietal lobe. Evidence of old lacunae. No hemorrhage. No edema. Ventricles: No hydrocephalus. Bones: Skull is intact. Soft tissues: Left posterior parietal skin michelle, correlate clinically. Sinuses: No acute sinusitis. Mastoid air cells: No mastoid effusion. IMPRESSION: No CT evidence of acute intracranial abnormality. Chronic changes as above. Correlate clinically. Followup as warranted.
[2017-07-03 20:40] VITALS: TEMP 97.5
--- NOTE | 2017-07-03 21:02 | C.PDOC ---
History Of Present Illness 72 year old male presents to the emergency department after being referred from alf for lethargy and confusion. Patient has a history of advanced dementia and is on a normal diet. Denies any further medical complaints. Time Seen by Provider: 07/03/17 18:43 Chief Complaint (Nursing): Altered Mental Status History Per: Patient History/Exam Limitations: None Past Medical History Reviewed: Historical Data, Nursing Documentation, Vital Signs Vital Signs: Last Vital Signs Temp 97.5 F L 07/03/17 20:39 Pulse 89 07/03/17 21:44 Resp 12 07/03/17 21:44 BP 139/55 L 07/03/17 21:44 Pulse Ox 100 07/07/17 00:37 - Medical History PMH: Alzheimer's Disease, Anxiety, Arthritis, Atrial Fibrillation, Dementia, HTN , Osteoporosis, Pneumonia, Seizures Denies: Chronic Kidney Disease Comment Only: CHF (A-Fib) - [facility] Procedures FLUOROSCOPY OF RIGHT HEART USING OTHER CONTRAST (04/24/15) MEASURE OF CARDIAC SAMPL & PRESSURE, R HEART, PERC APPROACH (04/24/15) REPAIR FACE SKIN, EXTERNAL APPROACH (04/25/17) Family History: States: No Known Family Hx - Social History Hx Tobacco Use: No Hx Alcohol Use: No Hx Substance Use: No - Immunization History Hx Tetanus Toxoid Vaccination: Yes (2014) Hx Influenza Vaccination: Yes Hx Pneumococcal Vaccination: Yes Review Of Systems Except As Marked, All Systems Reviewed And Found Negative. (As per HPI, otherwise negative) Constitutional: Positive for: Other (Lethargic and confused) Physical Exam - Physical Exam Appears: Well, Non-toxic, Confused Skin: Normal Color, Warm, Dry Head: Atraumatic, Normacephalic Gingiva: Normal Appearing Throat: Normal, No Erythema Chest: Symmetrical Cardiovascular: Rhythm Regular, No Murmur Respiratory: Normal Breath Sounds, No Decreased Breath Sounds, No Accessory Muscle Use, No Wheezing Gastrointestinal/Abdominal: Normal Exam, Soft, No Tenderness Extremity: Normal ROM, Other (Superficial scant distal abrasion noted to the lower extremities bilaterally) Neurological/Psych: Oriented x3 ED Course And Treatment - Laboratory Results Result Diagrams: 07/03/17 17:57 07/03/17 18:44 Lab Interpretation: Normal (vbg wnl) ECG: Interpreted By Me ECG Rhythm: Sinus Rhythm ECG Interpretation: Normal Rate From EC O2 Sat by Pulse Oximetry: 100 (RA) Pulse Ox Interpretation: Normal - Radiology CXR: Interpreted by Me CXR Interpretation: Yes: No Acute Disease - CT Scan/US head CT Other Rad Studies (CT/US): Radiology Report Reviewed (no acute findings.) Progress Note: mild hypothermia warmed with bear hugger, recheck wnl Reevaluation Time: 21:00 - Physician Consult Information Physician Contacted: 2039 Outcome Of Conversation: 2039: d/w PMD Dr. Ketty Monahan- ok to return to [place] with neg w/u. Medical Decision Making Medical Decision Making: baseline dementia, mild hypothermia of ? etiology. Time: 1756 --EKG --VBG Shock Panel --CBC w/ diff --Chest x-ray Time: 1806 --Head CT Time: 1843 --CMP --MINE Panel --Troponin I: <0.0120 Time: 1849 --Chest x-ray IMPRESSION: No active disease. No acute/significant interval changes. Time:1951 --Head CT IMPRESSION: No CT evidence of acute intracranial abnormality. Chronic changes as above. Correlate clinically. Followup as warranted. Time: 2100 --Patient is stable for discharge and will be returning to alf. --Follow up Dr. Jesus Monahan MD Clinical impression: Hypothermia and dementia Disposition Doctor Will See Patient In The: Office Counseled Patient/Family Regarding: Studies Performed, Diagnosis - Disposition Referrals: Jesus Monahan MD [Staff Provider] - Disposition: OTHER INSTITUTION Disposition Time: 21:01 Condition: GOOD Additional Instructions: normal eval: labs, EKG, CXR, head CT Mild hypothermia 96.6^F, rewarmed gently w Bear Hugger- much improved Instructions: Dementia (ED), Acute Hypothermia (ED) Forms: [employer] (Palauan) - Clinical Impression Clinical Impression: Dementia, Hypothermia - Scribe Statement Rosi Kinsey All medical record entries made by the Scribe were at my direction and personally dictated by me. I have reviewed the chart and agree that the record accurately reflects my personal performance of the history, physical exam, medical decision making, and the department course for this patient. I have also personally directed, reviewed, and agree with the discharge instructions and disposition.
[2017-07-03 21:44] VITALS: BP 139/55; PULSE 89; RESP 12
[2017-07-03 22:08] VITALS: O2SAT 100
== END 2017-07-03 22:03 | disposition designated cancer center or children's hospital (05) ==
LOC: C.ER 16:39
DX: T68.XXXA Hypothermia, initial encounter (principal); G30.9 Alzheimer's disease, unspecified; F02.80 Dementia in other diseases classified elsewhere, unspecified severity, without behavioral disturbance, psychotic disturbance, mood disturbance, and anxiety; I10 Essential (primary) hypertension; I48.91 Unspecified atrial fibrillation